=== PATIENT | female | born 1960 | race Caucasian/White ===

== ENCOUNTER 2022-10-12 12:28 | Emergency (ER) | payer BC, MEDICAID, SELFPAY ==
[2022-10-12 12:35] VITALS: BP 121/79; PULSE 65; RESP 18; TEMP 36.6; O2SAT 97; BMI 35.9
--- NOTE | 2022-10-12 12:57 | CRLHL7_ITS ---
For Patients: As a result of the Century Cures Act, medical imaging exams and procedure reports are released immediately into your electronic medical record. You may view this report before your referring provider. If you have questions, please contact your health care provider. INDICATION: Right leg pain/swelling. COMPARISON: None. TECHNIQUE: A compression venous ultrasound exam was performed of the right lower extremity using rao-scale imaging, color Doppler and spectral Doppler analysis. FINDINGS: Sonographic imaging of the right lower extremity demonstrates normal compressibility and color Doppler venous blood flow within the common femoral, femoral, deep femoral, and proximal greater saphenous veins. At a lower level the popliteal, peroneal, and posterior tibial veins also show normal compressibility and color Doppler venous blood flow. Limited imaging of the contralateral groin demonstrates a normal spectral waveform and color Doppler venous blood flow within the left common femoral vein. IMPRESSION: 1. Negative for acute DVT in the right lower extremity. 2. Slow flow is noted within the veins. Dictated by Cassidy Mcneil MD @ 10/12/2022 2:55:34 PM (Electronically Signed)
--- NOTE | 2022-10-12 12:57 | CRLHL7_ITS ---
For Patients: As a result of the Century Cures Act, medical imaging exams and procedure reports are released immediately into your electronic medical record. You may view this report before your referring provider. If you have questions, please contact your health care provider. Indication: Right leg pain Technique: Three views Comparison: None Findings/Impression: Bones: No evidence of fracture. Joint spaces: Unremarkable. Soft tissues: Enthesopathic calcification near the right ischium. Hydroxyapatite formation adjacent to the right greater trochanter. Dictated by Brendan Oscar MD @ 10/12/2022 2:04:34 PM (Electronically Signed)
--- NOTE | 2022-10-12 12:57 | CRLHL7_ITS ---
For Patients: As a result of the Century Cures Act, medical imaging exams and procedure reports are released immediately into your electronic medical record. You may view this report before your referring provider. If you have questions, please contact your health care provider. Indication: Leg pain Technique: Four views Comparison: None Findings/Impression: Bones: No evidence of fracture. Joint spaces: Mild medial compartment narrowing with marginal osteophytes consistent with osteoarthritis. No significant knee effusion. Soft tissues: Unremarkable. Dictated by Brendan Oscar MD @ 10/12/2022 2:02:18 PM (Electronically Signed)
--- NOTE | 2022-10-12 12:59 | ED.GENADULT ---
HPI - General Adult General Time Seen by Provider: 12:59 Date Seen: 10/12/22 Chief complaint: Extremity Pain/Injury, Lower Stated complaint: right leg pain Time Seen by Provider: 10/12/22 12:30 Source: patient Mode of arrival: ambulatory Limitations: no limitations History of Present Illness HPI narrative: Patient is a 62-year-old female with history of osteopenia, anxiety, hypertension presenting to the emergency department for right leg pain. She states for the past couple weeks she has been having this right leg pain. States initially was excruciating pain noted to her right length through old toe and leg ordered states that slowly been improving. States that lower leg pain resolved and then states the right hip and knee pain associated resolved. States currently she is having pain to her right thigh. She states the pain is mostly only there if she is moving. She states while at work she has a standing desk and there is she is able to keep her weight on her left leg instead of the right she notices improvement in his symptoms. She does states she feels of the right thigh muscle is tense earlier than the left. She a strikingly primary care provider but cannot get in until next week. No history of blood clots states she is having anxiety is concerned she could have a blood clot. Does states she had numbness in her right leg but states while she was driving here the numbness went away and she thinks this never actually numb and she was just being anxious. Denies fevers, chills, chest pain, shortness of breath, weakness. Related Data Previous Rx's Medication Instructions Recorded amlodipine 5 mg tablet 5 mg PO DAILY #90 tabs 09/06/22 benazepril 40 mg tablet 40 mg PO DAILY #90 tabs 09/06/22 carvedilol 25 mg tablet 25 mg PO BID #180 tabs 09/06/22 clonazepam 0.5 mg tablet 0.5 mg PO BID PRN anxiety #60 tabs 09/06/22 Allergies Allergy/AdvReac Type Severity Reaction Status Date / Time aspartame Allergy Severe Hives Verified 09/20/22 11:22 hydrochlorothiazide Allergy Severe increased Verified 09/06/22 09:54 blood pressre oxycodone Allergy Severe Vomiting Verified 09/06/22 09:54 shrimp Allergy Severe hives, Verified 09/06/22 09:54 swelling Sulfa (Sulfonamide Allergy Severe lip Verified 09/06/22 09:54 Antibiotics) swelling, heart palpitations prednisone Allergy Unknown Hypertensio Verified 09/20/22 11:22 n Review of Systems Status of ROS: Reports: 10 or more systems reviewed and unremarkable except as noted in History and below [facility] History (Updated 10/12/22 @ 15:25 by Chava Valencia, ) Fibroma of foot ?D21.20 - Benign neoplasm of connective and other soft tissue of unspecified lower limb, including hip (ICD-10) Hyperlipidemia ?E78.5 - Hyperlipidemia, unspecified (ICD-10) Osteopenia (09/11/21) ?M85.80 - Other specified disorders of bone density and structure, unspecified site (ICD-10) ADAM (obstructive sleep apnea) ?G47.33 - Obstructive sleep apnea (adult) (pediatric) (ICD-10) History of vitamin D deficiency ?Z86.39 - Personal history of other endocrine, nutritional and metabolic disease (ICD-10) Paroxysmal SVT (supraventricular tachycardia) ?I47.1 - Supraventricular tachycardia (ICD-10) Panic attacks ?F41.0 - Panic disorder [episodic paroxysmal anxiety] (ICD-10) MELINDA (generalized anxiety disorder) ?F41.1 - Generalized anxiety disorder (ICD-10) Primary hypertension ?I10 - Essential (primary) hypertension (ICD-10) Surgical History (Updated 09/20/22 @ 12:03 by Kathy Forbes) History of open reduction and internal fixation (ORIF) procedure (03/08/21) ?Z98.890 - Other specified postprocedural states (ICD-10) History of tonsillectomy (~1976) ?Z90.89 - Acquired absence of other organs (ICD-10) History of hysterectomy (10/15/11) ?Z90.710 - Acquired absence of both cervix and uterus (ICD-10) History of 3 sections ?Z98.891 - History of uterine scar from previous surgery (ICD-10) History of laparoscopic cholecystectomy (07/14/22) ?Z90.49 - Acquired absence of other specified parts of digestive tract (ICD-10) Family History (Updated 09/20/22 @ 11:54 by Kathy Forbes) Mother Alcohol dependence Asthma Breast cancer, Onset Age: 52 High blood pressure CHF (congestive heart failure) Chronic mental illness Myocardial infarction Father High blood pressure Stroke Coronary artery disease Sister Alcohol dependence Chronic mental illness Brother Diabetes Narcotic addiction Asthma Stroke High blood pressure Kidney transplant recipient Chronic mental illness Social History (Updated 09/06/22 @ 10:07 by Kristina Garcia ~ [facility]) What is your current living situation?: I presently have a place to live Problems where you live: no known problems In the past 12 months, utilities in danger of being shut off: no In the past 12 mos, have been you worried that your food would run out before you had money to buy more?: never true In the past 12 mos, the food you bought just didn't last and you didn't have money to buy more?: never true Smoking Status: Former smoker How often do you have a drink containing alcohol: never AUDIT-C Alcohol total score: 0 Non-prescribed substance use: denies use How often does anyone, including family, friends and others, physically hurt you: How often does anyone, including family, friends and others, insult or talk down to you: How often does anyone, including family, friends and others, threaten you with harm: How often does anyone, including family, friends and others, scream or curse at you: Little interest or pleasure in doing things: more than half the days Feeling down, depressed, or hopeless: more than half the days Exam Narrative: Exam Narrative: Const: Well-nourished, Well-developed, in mild distress Eyes: PERRL, no conjunctival injection, and symmetrical lids ENMT: Atraumatic external nose and ears. Moist mucous membranes. CVS: RRR, No murmurs or gallops. Peripheral pulses 2+ and equal in all extremities RESP: Unlabored respiratory effort. Clear to auscultation bilaterally. GI: Nontender/Nondistended, No rebound or guarding. MSK:Extremities w/o deformity, Normal Active ROM Skin: Warm, Dry. No rashes or lesions. Neuro: Normal Muscle tone, No focal neurological deficits. Psych: Awake, Alert, & Oriented x3. Appropriate mood and affect. Const: Vital Signs, click to edit/add: Vital Signs - 24 hr 10/12/22 12:35 Temperature 98 F Pulse Rate [Pulse Oximeter] 65 Respiratory Rate 18 Blood Pressure [Le ft Upper Arm] 121/79 Pulse Oximetry 97 Oxygen Delivery Me thod Room Air Course Vital Signs Vital signs: Initial Vital Signs Temperature 98 F 10/12/22 12:35 Temperature Source Temporal Artery Scan 10/12/22 12:35 Pulse Rate 65 10/12/22 12:35 Respiratory Rate 18 10/12/22 12:35 Blood Pressure 121/79 10/12/22 12:35 Blood Pressure Mean 93 10/12/22 12:35 Blood Pressure Position Sitting 10/12/22 12:35 Pulse Oximetry 97 10/12/22 12:35 Oxygen Delivery Method Room Air 10/12/22 12:35 Vital Signs Temperature 98 F 10/12/22 12:35 Pulse Rate 65 10/12/22 12:35 Respiratory Rate 18 10/12/22 12:35 Blood Pressure 121/79 10/12/22 12:35 Pulse Oximetry 97 10/12/22 12:35 Oxygen Delivery Method Room Air 10/12/22 12:35 Temperature 98 F 10/12/22 12:35 Pulse Rate 65 10/12/22 12:35 Respiratory Rate 18 10/12/22 12:35 Blood Pressure 121/79 10/12/22 12:35 Pulse Oximetry 97 10/12/22 12:35 Oxygen Delivery Method Room Air 10/12/22 12:35 Medical Decision Making MDM Narrative Medical decision making narrative: Patient is 62 female presenting for right leg pain. States and going for the past 2 weeks. Initially was entirely take this slowly come down to just the right side it hurts. It hurts more when she is up moving around. Denies any injuries. Considering where her pain is there was some thought could be referred pain from the hip or knee. X-rays of the right hip and knee were ordered. We will also order an ultrasound of for signs of a DVT at this time. I asked patient if she wants any pain medication and she states now. States the pain is only a 3/10 at this time. Patient's x-ray showed no concerning acute abnormalities. There is only mild osteoporosis this is unlikely to be cause of her symptoms. DVT ultrasound show no signs of a DVT at this time. She is otherwise doing well at this time also. She most likely has a muscle strain causing his symptoms. Unsure how she cause this blood informed of follow-up with the primary care provider. We also spoke with her possibly on light duty she states she already is on light duty at baseline and does not need a work note. She will be discharged home and she agrees with this plan. Discharge Plan Discharge Clinical Impression: Muscle strain Patient Disposition: Home, Self-Care Condition: Stable Instructions: Muscle Strain (ED) Additional Instructions: Follow-up with the primary care provider. Return for new or worsened symptoms. Take Tylenol or ibuprofen for pain. Is unclear exactly what is causing the right thigh pain but does no signs of fractures or major structure damage to your joints. No signs of a DVT on the ultrasound. Prescriptions: No Action carvedilol 25 mg tablet 25 mg PO BID Qty: 180 1RF amlodipine 5 mg tablet 5 mg PO DAILY Qty: 90 1RF benazepril 40 mg tablet 40 mg PO DAILY Qty: 90 1RF clonazepam 0.5 mg tablet 0.5 mg PO BID PRN (Reason: anxiety) Qty: 60 0RF Follow Up/Referrals: Provider,Not a Local [Referring] - Stand Alone Forms: MyHealth Info Instructions
== END 2022-10-12 15:52 | disposition home or self-care (01) ==
PROVIDERS: Emergency Provider Student in an Organized Health Care Education/Training Program; PCP Family Medicine
DX: S86.911A Strain of unspecified muscle(s) and tendon(s) at lower leg level, right leg, initial encounter (principal); S76.911A Strain of unspecified muscles, fascia and tendons at thigh level, right thigh, initial encounter
CPT/HCPCS: 73502; 73564; 93971; 99282; 99283

== ENCOUNTER 2022-12-22 11:37 | Outpatient (CLI) | payer BC, MEDICAID, SELFPAY | END 2022-12-22 11:38 | disposition home or self-care (01) | PROVIDERS: PCP Family Medicine; Visit Provider Family Medicine | DX: R53.83 Other fatigue (principal); E78.5 Hyperlipidemia, unspecified; I10 Essential (primary) hypertension; K76.0 Fatty (change of) liver, not elsewhere classified; F41.1 Generalized anxiety disorder | CPT/HCPCS: 80048; 80061; 80076; 84443; 85025 ==

== ENCOUNTER 2023-01-04 09:36 | Emergency (ER) | payer BC, MEDICAID, SELFPAY ==
[2023-01-04 10:37] VITALS: BP 104/71; PULSE 62; RESP 16; TEMP 36.3; O2SAT 94; BMI 35.9
--- NOTE | 2023-01-04 13:38 | ED_ITS ---
HPI - General Adult General Chief complaint: Neuro Symptoms/Altered Deficit Stated complaint: Dizzy spells Time Seen by Provider: 01/04/23 13:24 Source: patient Mode of arrival: ambulatory Limitations: no limitations History of Present Illness HPI narrative: Patient is a 62-year-old female presenting with dizziness. States she has been dizzy going on day 3. States that it is worse when she goes from a laying to a sitting position. She describes the sensation as things are spinning. It takes a few seconds and then things settle down. If she is sitting still she has no symptoms. This causes mild nausea, no vomiting. She denies any recent illness. She has no headache, changes in her vision or ringing in her ears. She denies any new medications, no recent traveling. She denies any head trauma. Related Data Previous Rx's Medication Instructions Recorded amlodipine 5 mg tablet 5 mg PO DAILY #90 tabs 09/06/22 benazepril 40 mg tablet 40 mg PO DAILY #90 tabs 09/06/22 carvedilol 25 mg tablet 25 mg PO BID #180 tabs 09/06/22 clonazepam 0.5 mg tablet 0.5 mg PO BID PRN anxiety #60 tabs 11/23/22 escitalopram oxalate 10 mg tablet 10 mg PO QDAY #30 tabs 12/22/22 (Lexapro) Allergies Allergy/AdvReac Type Severity Reaction Status Date / Time aspartame Allergy Severe Hives Verified 01/04/23 10:36 hydrochlorothiazide Allergy Severe increased Verified 01/04/23 10:36 blood pressre oxycodone Allergy Severe Vomiting Verified 01/04/23 10:36 shrimp Allergy Severe hives, Verified 01/04/23 10:36 swelling Sulfa (Sulfonamide Allergy Severe lip Verified 01/04/23 10:36 Antibiotics) swelling, heart palpitations prednisone Allergy Unknown Hypertensio Verified 01/04/23 10:36 n Review of Systems Status of ROS: Reports: 10 or more systems reviewed and unremarkable except as noted in History and below [facility] Medical History Gestational diabetes ?O24.419 - Gestational diabetes mellitus in , unspecified control (ICD-10) Fibroma of foot ?D21.20 - Benign neoplasm of connective and other soft tissue of unspecified lower limb, including hip (ICD-10) Hyperlipidemia ?E78.5 - Hyperlipidemia, unspecified (ICD-10) Osteopenia (09/11/21) ?M85.80 - Other specified disorders of bone density and structure, unspecified site (ICD-10) ADAM (obstructive sleep apnea) ?G47.33 - Obstructive sleep apnea (adult) (pediatric) (ICD-10) History of vitamin D deficiency ?Z86.39 - Personal history of other endocrine, nutritional and metabolic disease (ICD-10) Paroxysmal SVT (supraventricular tachycardia) ?I47.1 - Supraventricular tachycardia (ICD-10) Panic attacks ?F41.0 - Panic disorder [episodic paroxysmal anxiety] (ICD-10) MELINDA (generalized anxiety disorder) ?F41.1 - Generalized anxiety disorder (ICD-10) Primary hypertension ?I10 - Essential (primary) hypertension (ICD-10) Surgical History History of open reduction and internal fixation (ORIF) procedure (03/08/21) ?Z98.890 - Other specified postprocedural states (ICD-10) History of tonsillectomy (~1976) ?Z90.89 - Acquired absence of other organs (ICD-10) History of hysterectomy (10/15/11) ?Z90.710 - Acquired absence of both cervix and uterus (ICD-10) History of 3 sections ?Z98.891 - History of uterine scar from previous surgery (ICD-10) History of laparoscopic cholecystectomy (07/14/22) ?Z90.49 - Acquired absence of other specified parts of digestive tract (ICD- 10) Family History Mother Alcohol dependence Asthma Breast cancer, Onset Age: 52 High blood pressure CHF (congestive heart failure) Chronic mental illness Myocardial infarction Father High blood pressure Stroke Coronary artery disease Sister Alcohol dependence Chronic mental illness Brother Diabetes Narcotic addiction Asthma Stroke High blood pressure Kidney transplant recipient Chronic mental illness Social History What is your current living situation?: I presently have a place to live Problems where you live: no known problems In the past 12 months, utilities in danger of being shut off: no In the past 12 mos, have been you worried that your food would run out before you had money to buy more?: never true In the past 12 mos, the food you bought just didn't last and you didn't have money to buy more?: never true Smoking Status: Former smoker Do you use any of these nicotine containing products: None Second hand tobacco smoke exposure: No How often do you have a drink containing alcohol: never AUDIT-C Alcohol total score: 0 Non-prescribed substance use: denies use How often does anyone, including family, friends and others, physically hurt you : How often does anyone, including family, friends and others, insult or talk down to you: How often does anyone, including family, friends and others, threaten you with harm: How often does anyone, including family, friends and others, scream or curse at you: Little interest or pleasure in doing things: nearly every day Feeling down, depressed, or hopeless: nearly every day service: No Exam Narrative: Exam Narrative: Well-nourished well-developed patient, very anxious. Alert and oriented x3. Answers questions appropriately. Mood and affect are appropriate. Thoughts are goal oriented and rational. No tangential or magical thinking noted. Patient speaks in full sentences without needing to catch their breath. Speech is not slurred or pressured. HEENT: Normocephalic atraumatic. Pupils are equally round reactive to light. Extraocular muscles are intact. Conjunctivae are moist without any icterus noted. Moist mucous membranes. Posterior pharynx is normal. Neck is soft without any lymphadenopathy or thyromegaly. No masses are appreciated. Cardiovascular: Heart is regular rate and rhythm S1 and S2 are present without any murmurs. Lungs: Clear to auscultation bilaterally no wheezes rhonchi or rales are appreciated. Patient takes deep breaths without any discomfort. Abdomen: Soft and nontender nondistended with normal bowel sounds. Extremities: Bilateral lower extremities are without edema. Skin: Well perfused without any obvious rashes. Strength is 5/5 of the upper and lower extremities. Reflexes are 2+ and symmetric at the knees. Cranial nerves 3-12 are normal. There is no nystagmus either horizontally or vertically at rest. Gait is normal. Patient's Hallpike is positive when she turns to the left side. Const: Vital Signs, click to edit/add: Vital Signs - 24 hr 10/24/23 10:37 Temperature 97.4 F L Pulse Rate [Pulse Oximeter] 62 Respiratory Rate 16 Blood Pressure [Ri ght Upper Arm] 104/71 Pulse Oximetry 94 Oxygen Delivery Me thod Room Air Course Vital Signs Vital signs: Initial Vital Signs Temperature 97.4 F L 01/04/23 10:37 Temperature Source Temporal Artery Scan 01/04/23 10:37 Pulse Rate 62 01/04/23 10:37 Pulse Rhythm Regular 01/04/23 10:37 Pulse Strength 3+ Normal 01/04/23 10:37 Respiratory Rate 16 01/04/23 10:37 Blood Pressure 104/71 01/04/23 10:37 Blood Pressure Mean 82 01/04/23 10:37 Blood Pressure Position Sitting 01/04/23 10:37 Pulse Oximetry 94 01/04/23 10:37 Oxygen Delivery Method Room Air 01/04/23 10:37 Vital Signs Temperature 97.4 F L 01/04/23 10:37 Pulse Rate 62 01/04/23 10:37 Respiratory Rate 16 01/04/23 10:37 Blood Pressure 104/71 01/04/23 10:37 Pulse Oximetry 94 01/04/23 10:37 Oxygen Delivery Method Room Air 01/04/23 10:37 Temperature 97.4 F L 01/04/23 10:37 Pulse Rate 62 01/04/23 10:37 Respiratory Rate 16 01/04/23 10:37 Blood Pressure 104/71 01/04/23 10:37 Pulse Oximetry 94 01/04/23 10:37 Oxygen Delivery Method Room Air 01/04/23 10:37 Medical Decision Making MDM Narrative Medical decision making narrative: 62-year-old female with benign paroxysmal positional vertigo. We discussed symptomatic treatment, Saul maneuver, fluid hydration and physical therapy. Patient felt a lot of relief with our discussion, her anxiety did subside. Discharge Plan Discharge Clinical Impression: Benign paroxysmal positional vertigo Condition: Stable Additional Instructions: I do recommend you speak to her physical therapist about this as she can provide some exercises to do to help with your symptoms. In the meantime you can look up the Saul maneuver at home and do some exercises at home. Make sure you stay well hydrated and get plenty of rest. If you feel like things are getting worse certainly feel free to return to the ER. Prescriptions: No Action carvedilol 25 mg tablet 25 mg PO BID Qty: 180 1RF amlodipine 5 mg tablet 5 mg PO DAILY Qty: 90 1RF benazepril 40 mg tablet 40 mg PO DAILY Qty: 90 1RF escitalopram oxalate [Lexapro] 10 mg tablet 10 mg PO QDAY Qty: 30 1RF Hold Instructions: Doctor's Order Rx Instructions: 1/2 QD x 6 days, then 1 QD clonazepam 0.5 mg tablet 0.5 mg PO BID PRN (Reason: anxiety) Qty: 60 0RF Follow Up/Referrals: Donato Iniguez MD [Primary Care Provider] - Stand Alone Forms: MyHealth Info Instructions
== END 2023-01-04 13:45 | disposition home or self-care (01) ==
PROVIDERS: Emergency Provider Family Medicine; PCP Family Medicine
DX: R42 Dizziness and giddiness (principal)
CPT/HCPCS: 99282; 99283; 99284

== ENCOUNTER 2023-03-25 09:21 | Outpatient (CLI) | payer BC, MEDICAID, SELFPAY ==
--- NOTE | 2023-03-25 09:45 | CRLHL7_ITS ---
For Patients: As a result of the Century Cures Act, medical imaging exams and procedure reports are released immediately into your electronic medical record. You may view this report before your referring provider. If you have questions, please contact your health care provider. BILATERAL DIGITAL SCREENING MAMMOGRAM WITH TOMOSYNTHESIS AND COMPUTER-AIDED DETECTION CLINICAL HISTORY: Routine screening exam. COMPARISON: None. TECHNIQUE: Digital mammogram in CC and MLO projections including computer-aided detection (CAD). Tomosynthesis utilized. BREAST COMPOSITION: There are areas of scattered fibroglandular density. FINDINGS: RIGHT Breast: No suspicious findings. LEFT Breast: Focal asymmetric density upper outer quadrant 10 cm from the nipple. IMPRESSION: LEFT breast asymmetry/mass. RECOMMENDATIONS: Additional mammographic views of the LEFT breast including 3D spot compression CC/MLO. LEFT breast ultrasound may also be required. BI-RADS Category 0: Incomplete: Need Additional Imaging Evaluation and/or Prior Mammograms for Comparison [facility] will contact the patient for follow-up. A lay language report of this examination will be provided to the patient. Dictated by Donato Hatfield MD @ 03/30/2023 12:28:39 PM marixa/Dictated by: Donato Hatfield MD @ 03/30/2023 12:28:00 PM (Electronically Signed)
== END 2023-03-25 09:22 | disposition home or self-care (01) ==
LOC: MAMMO 09:24
PROVIDERS: PCP Family Medicine; Visit Provider Family Medicine
DX: Z12.31 Encounter for screening mammogram for malignant neoplasm of breast (principal); N63.20 Unspecified lump in the left breast, unspecified quadrant
CPT/HCPCS: 77063; 77067

== ENCOUNTER 2023-04-05 08:29 | Outpatient (CLI) | payer BC, MEDICAID, SELFPAY ==
--- NOTE | 2023-04-05 08:45 | CRLHL7_ITS ---
For Patients: As a result of the Cures Act, medical imaging exams and procedure reports are released immediately into your electronic medical record. You may view this report before your referring provider. If you have questions, please contact your health care provider. DIAGNOSTIC LEFT BREAST MAMMOGRAM WITH COMPUTER-AIDED DETECTION AND TOMOSYNTHESIS LEFT BREAST ULTRASOUND 04/05/2023 CLINICAL HISTORY: LEFT breast mass/asymmetry. COMPARISON: 03/25/2023 TECHNIQUE: Digital LEFT mammogram in 2 projections. Real-time ultrasound imaging of LEFT breast with imaging documentation. Scanning was performed by both the technologist and the radiologist. BREAST COMPOSITION: Scattered fibroglandular densities. FINDINGS: 3D spot compression cc/MLO left breast mammogram images submitted. Decreased conspicuity of previously noted asymmetric density. No architectural distortion. No suspicious calcifications. Targeted LEFT breast ultrasound performed in the upper-outer quadrant 10 cm from the nipple performed. Normal fibroglandular tissue. No suspicious findings. IMPRESSION: No evidence of malignancy. RECOMMENDATIONS: Annual bilateral screening mammography. Results and recommendations discussed with the patient. A lay language report of this examination will be provided to the patient. BI-RADS Category 2: Benign Dictated by Donato Hatfield MD @ 04/05/2023 10:44:18 AM DAR/dat DW/Dictated by: Donato Hatfield MD @ 04/05/2023 10:44:00 AM (Electronically Signed)
--- NOTE | 2023-04-05 09:15 | CRLHL7_ITS ---
For Patients: As a result of the Century Cures Act, medical imaging exams and procedure reports are released immediately into your electronic medical record. You may view this report before your referring provider. If you have questions, please contact your health care provider. See LEFT breast diagnostic mammogram for combined diagnostic mammogram/ultrasound report. DW/Dictated by: Donato Hatfield MD @ 04/05/2023 10:44:00 AM (Electronically Signed)
== END 2023-04-05 08:30 | disposition home or self-care (01) ==
LOC: MAMMO 08:29
PROVIDERS: PCP Family Medicine; Visit Provider Family Medicine
DX: N63.20 Unspecified lump in the left breast, unspecified quadrant (principal); R92.8 Other abnormal and inconclusive findings on diagnostic imaging of breast
CPT/HCPCS: 76642; 77065; G0279